=== PATIENT | female | born 2005 | race African-American/Black ===

== ENCOUNTER 2025-01-01 18:16 | Emergency (ER) | payer MEDICAID ==
[~2025-01-01] VITALS: Ht 170.2 cm; Wt 45.0 kg
[2025-01-01 18:24] VITALS: O2SAT 98
[2025-01-01 20:16] LABS: BASOPHILS % 0.4 % (0.0-2.0); EOSINOPHILS % 0.4 % (0.0-5.0); HEMATOCRIT. 38.4 % (36.0-48.0); HEMOGLOBIN. 12.2 g/dL (12.0-16.0); LYMPHOCYTES % 16.3 % (20.0-50.0); MEAN PLATELET VOLUME 8.3 fl (7.4-10.4); MONOCYTES % 8.4 % (2.0-8.0); NEUTROPHILS % 74.5 % (40.0-76.0); PLATELET 283 x1000/uL (130-400); RED BLOOD CELL COUNT 5.64 mill/uL (4.2-5.4); RED CELL DISTRIBUTION WIDTH 14.7 % (11.6-14.6)
[2025-01-01 20:18] LABS: ADD RBC MORPHOLOGY YES
[2025-01-01 20:31] LABS: CREATININE 1.0 mg/dL (0.6-1.0); TROPONIN I HIGH SENSITIVITY < 4 ng/L (3.0-34); UREA NITROGEN BLOOD 12 mg/dL (9-23)
[2025-01-01 20:32] LABS: ETHANOL BLOOD < 10 mg/dL (<10)
[2025-01-01 20:41] LABS: HCG SCREEN NEGATIVE
[2025-01-01 20:44] LABS: PLATELET ESTIMATE NORMAL
[2025-01-01] MEDS: SODIUM CHLORIDE 0.9% 1,000 ML IV ONE (20:46)
[2025-01-01] MEDS: CEFTRIAXONE 1GM/50ML 50 ML IV ONE (20:46)
[2025-01-01] MEDS ORDERED: IOHEXOL-350 100 ML BOTTLE ONE (22:43)
[2025-01-01 22:47] VITALS: BP 123/74; PULSE 80; RESP 15; TEMP 36.8; O2SAT 100
== END 2025-01-01 23:06 | disposition home or self-care (01) ==
LOC: ER 18:16
DX: R55 Syncope and collapse (principal)
CPT/HCPCS: 80048; 80320; 84703; 85025; 85379; 84484; 36415; 71275; 96365; 96366; 99285; Q9967; J0696; J7030; G0480